=== PATIENT | female | born 1960 | race Caucasian/White ===

== ENCOUNTER 2019-10-16 17:06 | Emergency (ER) | payer OTHER, MEDICAID ==
[~2019-10-16] VITALS: Ht 162.6 cm; Wt 54.0 kg
[2019-10-16] MEDS ORDERED: IBUPROFEN 400MG TABLET PO ONE (19:45)
[2019-10-16] MEDS ORDERED: HYDROCODONE/APAP 7.5/325MG 1 TAB TABLET PO ONE (19:45)
[2019-10-16 22:26] VITALS: BP 135/79
== END 2019-10-16 22:27 | disposition home or self-care (01) ==
LOC: ER 17:06
DX: S20.212A Contusion of left front wall of thorax, initial encounter (principal); S20.211A Contusion of right front wall of thorax, initial encounter; S40.021A Contusion of right upper arm, initial encounter; V89.2XXA Person injured in unspecified motor-vehicle accident, traffic, initial encounter; Y93.89 Activity, other specified; Y92.89 Other specified places as the place of occurrence of the external cause; Y99.8 Other external cause status
CPT/HCPCS: 71045; 73030; 74176; 99284

== ENCOUNTER 2022-05-13 12:46 | Emergency (ER) | payer OTHER, MEDICAID ==
[~2022-05-13] VITALS: Ht 162.6 cm; Wt 63.0 kg
[2022-05-13 13:45] VITALS: BP 116/69
[2022-05-13] MEDS ORDERED: CARB-274 EACH EAR (18:47)
== END 2022-05-13 19:04 | disposition home or self-care (01) ==
LOC: ER 12:46
DX: H61.22 Impacted cerumen, left ear (principal); E78.00 Pure hypercholesterolemia, unspecified; E11.9 Type 2 diabetes mellitus without complications; Z90.49 Acquired absence of other specified parts of digestive tract
CPT/HCPCS: 99282